=== PATIENT | male | born 1975 | race Hispanic/Latino ===

== ENCOUNTER 2020-12-14 17:52 | Emergency (ER) | payer SELFPAY ==
[2020-12-14 21:18] LABS: Basophils % (Auto) 0.2 % (0.0-1.8); Hematocrit 44.7 % (35.5-45.6); Hemoglobin 15.1 gm/dl (11.8-15.2); Lymphocytes # (Auto) 1.3 K/mm3 (1.2-5.4); Lymphocytes % (Auto) 8.1 % (13.4-35.0); Mean Corpuscular HGB Conc 34 % (32-34); Mean Corpuscular Volume 93 fl (84-94); Monocytes # (Auto) 1.1 K/mm3 (0.0-0.8); Monocytes % (Auto) 7.2 % (0.0-7.3); Platelet Count 224 K/mm3 (140-440); Red Cell Distribution Width 13.3 % (13.2-15.2)
[2020-12-14 21:36] LABS: Albumin 5.4 g/dL (3.9-5); Calcium 10.6 mg/dL (8.4-10.2)
[2020-12-14] MEDS ORDERED: SODIUM CHLORIDE 0.9% 1000 ML 1,000 ML IV ONE ×2 (23:13)
--- NOTE | 2020-12-14 23:19 | Emergency Department Report ---
ED Psych HPI - General Chief Complaint: Pain General Stated Complaint: WEAKNESS Time Seen by Provider: 12/14/20 23:07 Source: patient Mode of arrival: Ambulatory - History of Present Illness Initial Comments: Patient is a 45-year-old male who is presenting with pain all over. States has been walking from long time and a long distance. States he has is 2 out of 10 pain in his arms and legs. Patient exhibiting some delusional behavior as well. She states he believes that he is God patient believes we can see his pain radiating from his body. Patient having some incoherent rambling and may be responding to internal stimuli as well. Patient has a history of sc hizophrenia but it is unknown whether the patient is taking medications at this time. - Related Data Previous Rx's Medication Instructions Recorded Last Taken Type FLUoxetine [PROzac] 20 mg PO QDAY #30 capsule 12/15/20 Unknown Rx risperiDONE [RisperDAL] 2 mg PO BID #60 tablet 12/15/20 Unknown Rx Allergies Allergy/AdvReac Type Severity Reaction Status Date / Time No Known Allergies Allergy Unverified 03/13/14 16:40 ED Review of Systems ROS: Stated complaint: WEAKNESS Other details as noted in HPI Comment: All other systems reviewed and negative ED Past Medical Hx - Past Medical History Previous Medical History?: Yes Hx Psychiatric Treatment: Yes ([facility], schizophrenia) - Surgical History Past Surgical History?: No - Social History Smoking Status: Current Every Day Smoker Substance Use Type: None - Medications Home Medications: Home Medications Medication Instructions Recorded Confirmed Last Taken Type FLUoxetine [PROzac] 20 mg PO QDAY #30 capsule 12/15/20 Unknown Rx risperiDONE [RisperDAL] 2 mg PO BID #60 tablet 12/15/20 Unknown Rx ED Physical Exam - General Limitations: No Limitations General appearance: alert, in no apparent distress - Head Head exam: Present: atraumatic, normocephalic - Eye Eye exam: Present: normal appearance, PERRL, EOMI - ENT ENT exam: Present: mucous membranes moist - Neck Neck exam: Present: normal inspection - Respiratory Respiratory exam: Present: normal lung sounds bilaterally. Absent: respiratory distress, wheezes, rales, rhonchi - Cardiovascular Cardiovascular Exam: Present: regular rate, normal rhythm, normal heart sounds. Absent: systolic murmur, diastolic murmur, rubs, gallop - GI/Abdominal GI/Abdominal exam: Present: soft, normal bowel sounds. Absent: distended, ten derness, guarding, rebound - Rectal Rectal exam: Present: deferred - Extremities Exam Extremities exam: Present: normal inspection - Back Exam Back exam: Present: normal inspection - Neurological Exam Neurological exam: Present: alert, oriented X3 - Psychiatric Psychiatric exam: Present: agitated, other (delusions of ghrandure) - Skin Skin exam: Present: warm, dry, intact, normal color. Absent: rash ED Course Vital Signs 12/14/20 12/14/20 12/14/20 19:39 23:35 23:41 Temperature 99.1 F Pulse Rate 68 88 105 H Respiratory 18 12 16 Rate Blood Pressure 136/86 Blood Pressure 121/85 [Right] O2 Sat by Pulse 99 98 97 Oximetry 12/14/20 12/15/20 12/15/20 23:43 00:01 12:09 Temperature 98.4 F Pulse Rate 85 87 82 Respiratory 16 15 20 Rate Blood Pressure 136/86 129/83 Blood Pressure 125/86 [Right] O2 Sat by Pulse 98 99 100 Oximetry - Reevaluation(s) Reevaluation #1: 12/15/20 00:00 Patient complaining of pain all over. Initially thought the patient may be in rhabdomyolysis given the fact his creatinine is 1.4. CK is in the 200 range. Patient can orally hydrate as the patient is refusing IV. Patient did give a urine sample. Patient will be sent to mental health area awaiting mental health evaluation. Still exhibiting delusional thoughts. Unable to get any collateral history about the patient at this time. Reevaluation #2: 01/19/21 23:09 Patient Name: CINDY CLEMENT Date of : 79 Patient Status: Emergency Emergency Provider: JASON MEYER Date: 12/15/20 09:37 Initialization Date: 12/15/20 09:37 History of Present Illness - Reason for Consult Consult date: 12/15/20 Reason for consult: psych eval - Chief Complaint Chief complaint: Per ER Note: Patient is a 45-year-old male who is presenting with pain all over. States has been walking from long time and a long distance. States he has is 2 out of 10 pain in his arms and legs. Patient exhibiting some delusional behavior as well. She states he believes that he is God patient believes we can see his pain radiating from his body. Patient having some incoherent rambling and may be responding to internal stimuli as well. Patient has a history of schizophrenia but it is unknown whether the patient is taking medications at this time. Cindy Clement is a 45y/o patient who was seen today. He is calm, evasive at times. When asking the patient why did he come to the hospital, he states "because I didn't have no where to live." The patient was then asked about any family in the area, he replies "yes, I have family, but I still don't have no place to go." He says he has a history of "paranoid schizophrenia and bad mood s." He says he takes "risperidone 2mg po BID and prozac," but says he's been "off for a week." The patient denies SI/HI. He also denies hallucinations of any kind. When asking about any illicit drug use, he says "meth, yep do you got some?" He denies alcohol use. PAST PSYCHIATRIC HISTORY Diagnoses: schizophrenia, and bad moood Suicide attempts or Self-harm behavior: Denies Prior psychiatric hospitalizations: Yes Substance Abuse history: Meth Previous psychiatric medications tried: risperidone and prozac Outpatient treatment: yes SOCIAL HISTORY Marital Status: Single Living Arrangements: Homeless Employment Status: Unemployed Access to guns/weapons: Denies Education: high school History of Abuse: Denies Legal History: None reported REVIEW OF SYSTEMS Constitutional: Negative for weight loss ENT: Negative for stridor Respiratory: Negative for cough or hemoptysis All other systems reviewed and are negative MENTAL STATUS EXAMINATION General Appearance and Behavior: Age appropriate, good hygiene, wearing appropriate clothes, cooperative polite with questioning. Cooperation: cooperative, but evasive at times Psychomotor Behavior: Psychomotor agitation Mood: "okay" Affect and affective range: congruent to stated mood Thought Process: compulsive Thought Content: None Speech: Normal volume, Regular rate and rhythm Suicidal Ideation: Denied Homicidal Ideation: Denied hallucination: Denies Delusions: None elicited Impulse Control: Unimpaired Insight and Judgment: limited Memory: Limited Attention: Unimpaired Orientation: Alert and oriented Diagnoses: Schizophrenia RECOMMENDATIONS D/c 1013 Risperidone 2mg po BID Prozac 20mg po daily Risks, benefits and alternatives of medications discussed with the patient, questions answered and consent obtained from patient. PSYCHOTHERAPY: Supportive psychotherapy provided MEDICAL: Per primary team DELIRIUM PRECAUTIONS: Please re-orient patient frequently, keep lights on during the day, and minimize benzodiazepines and opiates as these medications could worsen patient's confusion. VACUUM CLOSING MACHINE OPERATOR: Per medical team DISPOSITION: Do not recommend acute inpatient psychiatric hospitalization at this time. The patient understands that he is to seek immediate assistance if SI/HI or feelings of endangerment are to arise. He is to abstain from all alcohol use The human resources analyst to give him outpatient resources, transportation pass if needed, C BT and drug rehab resources Follow up in 7 to 14 days with psych upon discharge FOLLOW-UP: Will sign off Thank you for the consult. Please contact with any questions and/or concerns. Case staffed with Dr. Papi SOLORZANO Medical Decision Making - Lab Data Result diagrams: 12/14/20 21:12/14/20 21: Lab Results 12/14/20 12/14/20 12/14/20 Range/Units 21: 21: 23:00 WBC 15.5 H (4.5-11.0) K/mm3 RBC 4.80 (3.65-5.03) M/mm3 Hgb 15.1 (11.8-15.2) gm/dl Hct 44.7 (35.5-45.6) % MCV 93 (84-94) fl MCH 31 (28-32) pg MCHC 34 (32-34) % RDW 13.3 (13.2-15.2) % Plt Count 224 (140-440) K/mm3 Lymph % (Auto) 8.1 L (13.4-35.0) % [place] % (Auto) 7.2 (0.0-7.3) % Eos % (Auto) 0.0 (0.0-4.3) % Baso % (Auto) 0.2 (0.0-1.8) % Lymph # (Auto) 1.3 (1.2-5.4) K/mm3 [place] # (Auto) 1.1 H (0.0-0.8) K/mm3 Eos # (Auto) 0.0 (0.0-0.4) K/mm3 Baso # (Auto) 0.0 (0.0-0.1) K/mm3 Seg Neutrophils % 84.5 H (40.0-70.0) % Seg Neutrophils # 13.1 H (1.8-7.7) K/mm3 Sodium 135 L (137-145) mmol/L Potassium 3.8 (3.6-5.0) mmol/L Chloride 92.5 L (98-107) mmol/L Carbon Dioxide 19 L (22-30) mmol/L Anion Gap 27 mmol/L BUN 19 (9-20) mg/dL Creatinine 1.4 H (0.8-1.3) mg/dL Estimated GFR 55 ml/min BUN/Creatinine Ratio 14 % Glucose 102 H (75-100) mg/dL Calcium 10.6 H (8.4-10.2) mg/dL Total Bilirubin 1.80 H (0.1-1.2) mg/dL AST 41 H (5-40) units/L ALT 33 (7-56) units/L Alkaline Phosphatase 67 (35-129) units/L Total Creatine Kinase 276 H (55-170) units/L Total Protein 8.7 H (6.3-8.2) g/dL Albumin 5.4 H (3.9-5) g/dL Albumin/Globulin Ratio 1.6 % Critical care attestation.: If time is entered above; I have spent that time in minutes in the direct care of this critically ill patient, excluding procedure time. ED Disposition Clinical Impression: Depression, Schizophrenia, Dehydration Disposition: DC-01 TO HOME OR SELFCARE Is pt being admited?: No Condition: Stable Instructions: Schizophrenia, Dehydration, Adult Additional Instructions: Your labs revealed a creatinine of 1.4 which could be a sign of dehydration. This indicates slight injury to your kidney. You should drink plenty of fluids and follow-up with a primary care doctor in 2 to 3 days for repeat examination and labs. Please watch out for any signs of infection including fever/chills, cough, or any other new concerning symptoms. Follow-up as instructed by psychiatry team. Return to the emergency department should you develop any signs of infection or new concerning symptoms. Professional and Agency Contacts To help [facility] (06/01) [place] Crisis Line: Suicide Prevention Line: Crisis Text Line: Text START to 899685 Emergency: 911 Outpatient COMMUNITY Behavioral Health Resources: HARLYEB: [facility] [address] [place], [place] [address] JESUP: [facility] [address] [place] [address] Friday thru Friday - 8am - 5pm Call to schedule an assessment for mental health and substance abuse programs SHER[facility]: [facility] Address: [address] [address] Friday thru Friday- 7am-2pm [facility] Address: [address] [place] [address] Friday thrfriday: 8:30AM-5PM Prescriptions: FLUoxetine [PROzac] 20 mg PO QDAY #30 capsule risperiDONE [RisperDAL] 2 mg PO BID #60 tablet Referrals: [facility] [Provider Group] - 2-3 Days [facility] [Outside] - 2-3 Days [facility] [Primary Care Provider] - 3-5 Days
[2020-12-15 00:07] LABS: Bilirubin,Urine SM (Negative); Blood,Urine NEG (Negative); Color,Urine Amber (Yellow); Hyaline Casts,Urine 21 /LPF; Mucus,Urine 3+ /HPF
[2020-12-15 00:12] LABS: Ictotest,Urine Negative (Negative)
[2020-12-15 00:14] LABS: Amphetamine Screen,Urine PRESUMPTIVE NEGATIVE; Benzodiazepines Screen,Urine PRESUMPTIVE NEGATIVE; Cannabinoid Screen,Urine PRESUMPTIVE NEGATIVE; Cocaine Screen,Urine PRESUMPTIVE NEGATIVE; Methadone Screen,Urine PRESUMPTIVE NEGATIVE; Opiate Screen,Urine PRESUMPTIVE NEGATIVE
--- NOTE | 2020-12-15 09:38 | Consultation ---
History of Present Illness - Reason for Consult Consult date: 12/15/20 Reason for consult: psych eval - Chief Complaint Chief complaint: Per ER Note: Patient is a 45-year-old male who is presenting with pain all over. States has been walking from long time and a long distance. States he has is 2 out of 10 pain in his arms and legs. Patient exhibiting some delusional behavior as well. She states he believes that he is God patient believes we can see his pain radiating from his body. Patient having some incoherent rambling and may be responding to internal stimuli as well. Patient has a history of schizophrenia but it is unknown whether the patient is taking medications at this time. Mohit Clement is a 45y/o patient who was seen today. He is calm, evasive at times. When asking the patient why did he come to the hospital, he states "because I didn't have no where to live." The patient was then asked about any family in the area, he replies "yes, I have family, but I still don't have no place to go." He says he has a history of "paranoid schizophrenia and bad moods." He says he takes "risperidone 2mg po BID and prozac," but says he's been "off for a week." The patient denies SI/HI. He also denies hallucinations of any kind. When asking about any illicit drug use, he says "meth, yep do you got some?" He denies alcohol use. PAST PSYCHIATRIC HISTORY Diagnoses: schizophrenia, and bad moood Suicide attempts or Self-harm behavior: Denies Prior psychiatric hospitalizations: Yes Substance Abuse history: Meth Previous psychiatric medications tried: risperidone and prozac Outpatient treatment: yes SOCIAL HISTORY Marital Status: Single Living Arrangements: Homeless Employment Status: Unemployed Access to guns/weapons: Denies Education: high school History of Abuse: Denies Legal History: None reported REVIEW OF SYSTEMS Constitutional: Negative for weight loss ENT: Negative for stridor Respiratory: Negative for cough or hemoptysis All other systems reviewed and are negative MENTAL STATUS EXAMINATION General Appearance and Behavior: Age appropriate, good hygiene, wearing appropriate clothes, cooperative polite with questioning. Cooperation: cooperative, but evasive at times Psychomotor Behavior: Psychomotor agitation Mood: "okay" Affect and affective range: congruent to stated mood Thought Process: compulsive Thought Content: None Speech: Normal volume, Regular rate and rhythm Suicidal Ideation: Denied Homicidal Ideation: Denied hallucination: Denies Delusions: None elicited Impulse Control: Unimpaired Insight and Judgment: limited Memory: Limited Attention: Unimpaired Orientation: Alert and oriented Diagnoses: Schizophrenia RECOMMENDATIONS D/c 1013 Risperidone 2mg po BID Prozac 20mg po daily Risks, benefits and alternatives of medications discussed with the patient, questions answered and consent obtained from patient. PSYCHOTHERAPY: Supportive psychotherapy provided MEDICAL: Per primary team DELIRIUM PRECAUTIONS: Please re-orient patient frequently, keep lights on during the day, and minimize benzodiazepines and opiates as these medications could worsen patient's confusion. INSURANCE COMPLIANCE ANALYST: Per medical team DISPOSITION: Do not recommend acute inpatient psychiatric hospitalization at this time. The patient understands that he is to seek immediate assistance if SI/HI or feelings of endangerment are to arise. He is to abstain from all alcohol use The carton making machinist to give him outpatient resources, transportation pass if needed, CB T and drug rehab resources Follow up in 7 to 14 days with psych upon discharge FOLLOW-UP: Will sign off Thank you for the consult. Please contact with any questions and/or concerns. Case staffed with Dr. Turpin Medications and Allergies Allergies Allergy/AdvReac Type Severity Reaction Status Date / Time No Known Allergies Allergy Unverified 03/13/14 16:40 Home Medications Medication Instructions Recorded Confirmed Last Taken Type FLUoxetine [PROzac] 20 mg PO QDAY #30 capsule 12/15/20 Unknown Rx risperiDONE [RisperDAL] 2 mg PO BID #60 tablet 12/15/20 Unknown Rx Mental Status Exam - Vital signs Last Vital Signs Temp 99.1 F 12/14/20 19:39 Pulse 87 12/15/20 00:01 Resp 15 12/15/20 00:01 BP 129/83 12/15/20 00:01 Pulse Ox 99 12/15/20 00:01 Results Result Diagrams: 12/14/20 21:01 12/14/20 21:01 Abnormal lab results 12/14/20 12/14/20 12/14/20 Range/Units 21:01 21:01 23:00 WBC 15.5 H (4.5-11.0) K/mm3 Lymph % (Auto) 8.1 L (13.4-35.0) % [place] # (Auto) 1.1 H (0.0-0.8) K/mm3 Seg Neutrophils % 84.5 H (40.0-70.0) % Seg Neutrophils # 13.1 H (1.8-7.7) K/mm3 Sodium 135 L (137-145) mmol/L Chloride 92.5 L (98-107) mmol/L Carbon Dioxide 19 L (22-30) mmol/L Creatinine 1.4 H (0.8-1.3) mg/dL Glucose 102 H (75-100) mg/dL Calcium 10.6 H (8.4-10.2) mg/dL Total Bilirubin 1.80 H (0.1-1.2) mg/dL AST 41 H (5-40) units/L Total Creatine Kinase 276 H (55-170) units/L Total Protein 8.7 H (6.3-8.2) g/dL Albumin 5.4 H (3.9-5) g/dL Urine WBC (Auto) (0.0-6.0) /HPF Salicylates (2.8-20.0) mg/dL Acetaminophen (10.0-30.0) ug/mL 12/14/20 12/15/20 12/15/20 Range/Units 23:31 00:30 00:30 WBC (4.5-11.0) K/mm3 Lymph % (Auto) (13.4-35.0) % [place] # (Auto) (0.0-0.8) K/mm3 Seg Neutrophils % (40.0-70.0) % Seg Neutrophils # (1.8-7.7) K/mm3 Sodium (137-145) mmol/L Chloride (98-107) mmol/L Carbon Dioxide (22-30) mmol/L Creatinine (0.8-1.3) mg/dL Glucose (75-100) mg/dL Calcium (8.4-10.2) mg/dL Total Bilirubin (0.1-1.2) mg/dL AST (5-40) units/L Total Creatine Kinase (55-170) units/L Total Protein (6.3-8.2) g/dL Albumin (3.9-5) g/dL Urine WBC (Auto) 8.0 H (0.0-6.0) /HPF Salicylates < 0.3 L (2.8-20.0) mg/dL Acetaminophen 5.0 L (10.0-30.0) ug/mL All other labs normal.
[2020-12-15] MEDS ORDERED: risperiDONE 1 MG TAB PO SCH (10:00)
[2020-12-15] MEDS ORDERED: FLUoxetine 20 MG CAP PO SCH (10:00)
[2020-12-15 12:12] VITALS: BP 125/86
--- NOTE | 2020-12-15 12:50 | Event Note ---
Date: 12/15/20 45-year-old male with history of schizophrenia who presented initially for pain all over. He was seen by my colleague and due to abnormal behavior he was medically cleared for psychiatric evaluation and treatment. The patient's labs did reveal mild leukocytosis and creatinine of 1.4. However, the patient has no signs of infection. Psychiatry/mental health team saw the patient this morning and recommended DC of the 1013, initiated risperidone/Prozac prescription and recommended follow-up in 7 to 14 days with psychiatry. Will provide outpatient resources. I personally spoke with the patient who denies SI/HI or hallucinations. He also denies any physical complaints or symptoms of infection. He promises he will drink copious fluids and follow-up with regular doctor for his acute kidney injury.
== END 2020-12-15 13:34 | disposition home or self-care (01) ==
LOC: ED 17:52
DX: R53.1 Weakness (principal); F25.9 Schizoaffective disorder, unspecified; F17.200 Nicotine dependence, unspecified, uncomplicated; Z20.822 Contact with and (suspected) exposure to COVID-19
CPT/HCPCS: 36415; 80053; 80307; 81001; 82550; 85025; 99284; J7030; U0003; 80320; G0480